=== PATIENT | female | born 1970 | race Caucasian/White ===

== ENCOUNTER 2024-06-16 08:25 | Emergency (ER) | payer OTHER, SELFPAY ==
--- NOTE | ~2024-06-16 | XR_ITS ---
XR shoulder RT min 2V Ordering provider: Leonela Light NP History: . GEN PAIN AFTER FALL,UNABLE TO ABDUCT ARM . Comparison: None. FINDINGS: BONES: No acute fracture or dislocation. JOINT SPACES: The acromioclavicular joint shows mild osteoarthritic changes. The glenohumeral joint i s normal. SOFT TISSUES: Normal. IMPRESSION: No acute osseous abnormality right shoulder. Reviewed, dictated and finalized at location A.
[2024-06-16 08:34] VITALS: BP 153/70; PULSE 77; RESP 16; TEMP 36.2; O2SAT 95
--- NOTE | 2024-06-16 08:46 | ED_ITS ---
HPI - General Adult General Chief complaint: Upper Respiratory Infection Stated complaint: right shoulder pain Time Seen by Provider: 06/16/24 08:47 Source: patient Mode of arrival: ambulatory Limitations: no limitations History of Present Illness HPI narrative: 54-year-old female presents with complaint of right shoulder pain for approximately 4 days. Patient states that she tripped over a baby gate and fell down on to right shoulder. Reports that difficulty lifting right arm to normal range of motion. Has not taking any [id number] pain medications to treat pain. all systems reviewed and negative except as noted above. Related Data Home Medications ?Medication ?Instructions ?Recorded ?Confirmed ?Last Taken ?Type albuterol sulfate 90 mcg/actuation inhalation 06/16/24 Unknown History aerosol inhaler amitriptyline 100 mg tablet mg 06/16/24 Unknown History atorvastatin 10 mg tablet mg 06/16/24 Unknown History glipizide 5 mg tablet, extended mg PO 06/16/24 Unknown History release 24 hr levothyroxine 75 mcg tablet mcg 06/16/24 Unknown History metformin 500 mg tablet,extended mg PO 06/16/24 Unknown History release 24 hr pregabalin 200 mg capsule mg 06/16/24 Unknown History Allergies Allergy/AdvReac Type Severity Reaction Status Date / Time No Known Allergies Allergy Unverified 10/12/18 10:26 Review of Systems Review of Systems: CONSTITUTIONAL: Denies fever, chills, or sweats. EYES: Denies visual changes, redness, or discharge. ENT: Denies rhinorrhea, congestion, sore throat, or otalgia. CARDIOVASCULAR: Denies chest pain, palpitations, or edema. RESPIRATORY: Denies cough or dyspnea. GASTROINTESTINAL: Denies abdominal pain, nausea, vomiting, or diarrhea. GENITOURINARY: Denies dysuria or hematuria. SKIN: Denies rash or itching. MUSCULOSKELETAL: Denies back pain or myalgia. Reports right shoulder pain. NEUROLOGIC: Denies headache, numbness, or weakness. PSYCHIATRIC: Denies anxiety or depression. All other systems reviewed are negative, except as documented in HPI. PMFSH Comments At time of signature, agree with nursing past medical, surgical, social and family history. There is no relevant family history pertinent to the presenting complaint. Exam Narrative: GENERAL: This is a well-nourished, well-developed patient, in no apparent distress. HEAD: normocephalic, atraumatic. EYES: PERRL. Sclera clear/white. Vision is grossly intact. EARS: External ears normal NOSE: External nose normal NECK: Neck supple, non-tender without lymphadenopathy, masses or thyromegaly. CARDIOVASCULAR: Regular rate and rhythm without murmurs, gallops, or rubs. RESPIRATORY: Clear to auscultation. Breath sounds equal bilaterally. No wheezes, rales, or rhonchi. SKIN: warm, Dry, intact with no suspicious lesions or rash, good texture and turgor. NEURO: awake, alert, and oriented to person, place and time. There were no obvious focal neurologic abnormalities. EXTREMITIES: Tenderness to right AC joint. Range of motion to right shoulder decreased due to pain. Negative drop-arm test. strength to right upper extremity 5/5 Course Course Level of Care: Express Care Visit Vital Signs Vital signs: Vital Signs Temperature 36.2 C L 06/16/24 08:34 Pulse Rate 77 06/16/24 08:34 Respiratory Rate 16 06/16/24 08:34 Blood Pressure 153/70 H 06/16/24 08:34 Pulse Oximetry 95 06/16/24 08:34 Oxygen Delivery Room Air 06/16/24 08:34 Temperature 36.2 C L 06/16/24 08:34 Pulse Rate 77 06/16/24 08:34 Respiratory Rate 16 06/16/24 08:34 Blood Pressure 153/70 H 06/16/24 08:34 Pulse Oximetry 95 06/16/24 08:34 Oxygen Delivery Room Air 06/16/24 08:34 reviewed Medical Decision Making MDM Narrative Medical decision making narrative: X-ray of right shoulder negative for fracture. Patient is well-appearing, no pain distress. Will treat with ibuprofen, methocarbamol. Recommend follow-up primary care physician if symptoms not improving. Please be advised this is a medical document. It is intended for vlsf-cp-gyin communication. It is written in medical language and may contain unfamiliar abbreviations or verbiage. Medical documents are intended to carry relevant information, facts as evident, and the clinical opinion of the practitioner at the time of the encounter. This report may have been done utilizing a voice recognition system. Attempts have been made to correct errors. However, there may be uncorrected grammatical, spelling, and recognition errors present. The file time of this note does not necessarily represent the time of service. Vital Signs Vital Signs: Vital Signs Temperature 36.2 C L 06/16/24 08:34 Pulse Rate 77 06/16/24 08:34 Respiratory Rate 16 06/16/24 08:34 Blood Pressure 153/70 H 06/16/24 08:34 Pulse Oximetry 95 06/16/24 08:34 Oxygen Delivery Room Air 06/16/24 08:34 Temperature 36.2 C L 06/16/24 08:34 Pulse Rate 77 06/16/24 08:34 Respiratory Rate 16 06/16/24 08:34 Blood Pressure 153/70 H 06/16/24 08:34 Pulse Oximetry 95 06/16/24 08:34 Oxygen Delivery Room Air 06/16/24 08:34 Imaging Data My impression: agree with radiologist Radiologist's impression: XR shoulder RT min 2V Ordering provider: Leonela Light NP History: . GEN PAIN AFTER FALL,UNABLE TO ABDUCT ARM . Comparison: None. FINDINGS: BONES: No acute fracture or dislocation. JOINT SPACES: The acromioclavicular joint shows mild osteoarthritic changes. The glenohumeral joint is normal. SOFT TISSUES: Normal. IMPRESSION: No acute osseous abnormality right shoulder. Discharge Plan Discharge Clinical Impression: Right shoulder strain Qualifiers: Encounter type: initial encounter Qualified Code(s): S46.911A - Strain of unspecified muscle, fascia and tendon at shoulder and upper arm level, right arm, initial encounter Patient Disposition: Home, Self-Care Condition: Stable Instructions: Shoulder Pain (ED) Additional Instructions: the x-ray of your right shoulder was negative for fracture. Take medications as prescribed. Methocarbamol is a muscle relaxant and may cause drowsiness. Do not drive while taking this medication. Follow-up with primary care physician if pain is not improving. Patient Language: Slovenian Prescriptions: New ibuprofen 800 mg tablet 800 mg PO TID PRN (Reason: pain) Qty: 30 0RF methocarbamol 750 mg tablet 750 mg PO Q8H PRN (Reason: muscle pain/spasm) Qty: 30 0RF No Action atorvastatin 10 mg tablet glipizide 5 mg tablet extended release 24hr PO levothyroxine 75 mcg tablet albuterol sulfate 90 mcg/actuation HFA aerosol inhaler INHALATION metformin 500 mg tablet extended release 24 hr PO amitriptyline 100 mg tablet pregabalin 200 mg capsule Follow-up/Referrals: Radha,Nik Way MD [Primary Care Provider] - Time of Disposition: 09:19
== END 2024-06-16 09:24 | disposition home or self-care (01) ==
PROVIDERS: Emergency Provider Nurse Practitioner Family; PCP Internal Medicine
DX: S46.911A Strain of unspecified muscle, fascia and tendon at shoulder and upper arm level, right arm, initial encounter (principal); Z79.84 Long term (current) use of oral hypoglycemic drugs; Z79.899 Other long term (current) drug therapy; W01.0XXA Fall on same level from slipping, tripping and stumbling without subsequent striking against object, initial encounter
CPT/HCPCS: 73030; 99203; G0463